=== PATIENT | female | born 1990 | race Caucasian/White ===

== ENCOUNTER 2024-02-14 21:05 | Emergency (ER) | payer SELFPAY ==
[~2024-02-14] VITALS: Ht 172.7 cm; Wt 86.6 kg
[2024-02-14] MEDS ORDERED: Ketorolac Tromethamine 15mg Vial IM ONE (23:10)
[2024-02-14] MEDS ORDERED: Lidocaine 4% 1 Patch TOP ONE (23:10)
[2024-02-14] MEDS ORDERED: Robaxin750 MG PO (23:14)
[2024-02-14] MEDS ORDERED: ASPERFLEX1 EACH TOP (23:14)
[2024-02-14] MEDS ORDERED: HYDROcodone 5-APAP 325 TAB PO ONE (23:15)
== END 2024-02-14 23:29 | disposition home or self-care (01) ==
LOC: ER 21:05
DX: M54.12 Radiculopathy, cervical region (principal); X50.0XXA Overexertion from strenuous movement or load, initial encounter
CPT/HCPCS: 72040; 96372; 99283-25; A9270; J1885

== ENCOUNTER 2024-07-17 08:00 | Emergency (ER) | payer MEDICARE, OTHER ==
[~2024-07-17] VITALS: Ht 172.7 cm; Wt 82.5 kg
[~2024-07-17 08:00] MED LIST: ASPERFLEX1 EACH TOP; Robaxin750 MG PO
[2024-07-17] MEDS ORDERED: Ondansetron 4 MG SoluTab MM ONE (08:20)
[2024-07-17] MEDS ORDERED: Morphine Sulfate 4 MG/1 ML Injection IM ONE (08:25)
[2024-07-17] MEDS ORDERED: METPRE4DP PO (09:22)
[2024-07-17] MEDS ORDERED: Neurontin 100100 MG PO (09:22)
== END 2024-07-17 09:30 | disposition home or self-care (01) ==
LOC: ER 08:00
DX: M54.16 Radiculopathy, lumbar region (principal); Z88.8 Allergy status to other drugs, medicaments and biological substances; Z79.899 Other long term (current) drug therapy
CPT/HCPCS: 99283; A9270; J2270

== ENCOUNTER 2024-07-31 08:25 | Emergency (ER) | payer MEDICARE, OTHER ==
[~2024-07-31] VITALS: Ht 375.9 cm; Wt 72.6 kg
[~2024-07-31 08:25] MED LIST changes: +METPRE4DP PO; +Neurontin 100100 MG PO
== END 2024-07-31 10:57 | disposition left against medical advice (07) ==
LOC: ER 08:25
DX: M54.50 Low back pain, unspecified (principal); Z53.21 Procedure and treatment not carried out due to patient leaving prior to being seen by health care provider
CPT/HCPCS: 99281

== ENCOUNTER → 2024-11-10 | Outpatient (CLI) | payer MEDICARE, OTHER | END | disposition home or self-care (01) | LOC: LAB 09:30 → LAB SHORT 09:30 | DX: M54.41 Lumbago with sciatica, right side (principal) | CPT/HCPCS: 85651 ==

== ENCOUNTER → 2024-12-13 | Outpatient (CLI) | payer MEDICARE, OTHER ==
[2024-12-13 17:41] LABS: BASOPHILS ABSOLUTE AUTO 0.05 K/mm3 (0.00-0.23); BASOPHILS PERCENT AUTO 1 % (0-2); EOSINOPHILS ABSOLUTE AUTO 0.06 K/mm3 (0.00-0.68); EOSINOPHILS PERCENT AUTO 1 % (0-6); Hematocrit 32.2 % (33.0-51.0); IMMATURE GRAN ABSOLUTE AUTO 0.04 K/mm3 (0.00-0.10); IMMATURE GRAN PERCENT AUTO 0 % (0-1); LYMPHOCYTES ABSOLUTE AUTO 1.51 K/mm3 (0.84-5.20); LYMPHOCYTES PERCENT AUTO 16 % (21-46); MONOCYTES ABSOLUTE AUTO 0.91 K/mm3 (0.16-1.47); MONOCYTES PERCENT AUTO 10 % (4-13); Mean Corpuscular HGB 22.7 pg (26.0-34.0); Mean Corpuscular HGB Conc 31.1 g/dL (31.5-36.5); Mean Corpuscular Volume 73 fL (80-100); Mean Platelet Volume 11.2 fL (9.1-12.4); NEUTROPHILS ABSOLUTE AUTO 7.01 K/mm3 (1.96-9.15); NEUTROPHILS PERCENT AUTO 73 % (41-73); Platelet Count 232 K/mm3 (150-400); RDW Coefficient Variation 16.7 % (11.7-14.2); RDW Standard Deviation 43.6 fL (35.1-46.3); Red Blood Cell Count 4.41 M/mm3 (3.80-5.20); White Blood Cell Count 9.58 K/mm3 (4.00-11.30)
[2024-12-13 17:54] LABS: Albumin, Blood 3.6 g/dL (3.4-5.0); Albumin/Globulin Ratio 0.9 (0.8-1.8); Bilirubin, Total 0.9 mg/dL (0.1-1.0); Bun/Creatinine Ratio 16.9 (12.0-20.0); Calcium, Blood 8.5 mg/dL (8.5-10.1); Creatinine, Blood 0.65 mg/dL (0.40-1.00); Globulin, Blood 3.8 g/dL (2.2-4.0); Potassium, Blood 3.7 mmol/L (3.5-5.5); Total Protein, Blood 7.4 g/dL (6.4-8.2)
== END | disposition home or self-care (01) ==
LOC: LAB SHORT 17:33 → LAB 17:33
PROVIDERS: Family Medicine
DX: R30.0 Dysuria (principal); R10.11 Right upper quadrant pain
CPT/HCPCS: 80053; 85025; 87077; 87086; 87186